=== PATIENT | female | born 1985 | race Hispanic/Latino ===

== ENCOUNTER 2018-11-20 19:10 | Emergency (ER) | payer SELFPAY ==
[2018-11-20 20:09] LABS: #Eosinphils 0.1 thou/uL (0.0-0.7); #Monocytes 0.5 thou/uL (0.11-0.59); #Neutrophils 4.6 thou/uL (1.40-6.50); %Basophils 0.3 % (0.0-1.0); %Eosinophils 1.4 % (0.0-10.0); %Lymphocytes 36.4 % (21.0-51.0); %Monocytes 6.4 % (0.0-10.0); %Neutrophils 55.5 % (42.0-75.0); Hemoglobin 11.7 g/dL (12.0-16.0); Mean Corpuscular HGB CONC 32.5 g/dL (32.0-36.0); Mean Corpuscular Hemoglobin 26.9 pg (27.0-31.0); Mean Corpuscular Volume 82.9 fL (78.0-98.0); Mean Platelet Volume 9.7 fL (7.4-10.4); Platelet Count 277 thou/uL (130-400); RBC Distribution Width 14.5 % (11.5-14.5); Red Blood Cell (RBC) Count 4.36 mill/uL (4.20-5.40); White Blood Cell (WBC) Count 8.2 thou/uL (4.8-10.8)
[2018-11-20] MEDS ORDERED: Ketorolac Tromethamine 30 MG/ML VIAL ONE (20:14)
[2018-11-20 20:34] LABS: ALT (SGPT) 16 U/L (8-55); AST (SGOT) 20 U/L (5-34); Albumin 4.3 g/dL (3.5-5.0); Alkaline Phosphatase 68 U/L (40-150); Anion Gap 13 mmol/L (10-20); BUN (Urea Nitrogen) 9 mg/dL (7.0-18.7); Bilirubin, Total 0.3 mg/dL (0.2-1.2); Calc. Creatinine Clearance 0 mL/min (70-130); Calcium 9.1 mg/dL (7.8-10.44); Carbon Dioxide 21 mmol/L (22-29); Chloride 105 mmol/L (98-107); Estimated GFR-MDRD Greater than 90; Globulin 3.5 g/dL (2.4-3.5); Glucose 75 mg/dL (70-105); Lipase 21 U/L (8-78); Potassium 3.8 mmol/L (3.5-5.1); Protein, Total 7.8 g/dL (6.0-8.3); Sodium 135 mmol/L (136-145)
--- NOTE | 2018-11-20 21:33 | ULT ---
EXAM: Pelvic ultrasound HISTORY: Bilateral pelvic pain for 2 days COMPARISON: None TECHNIQUE: Multiple grayscale and color Doppler images were obtained in a transabdominal and transvag inal pelvic ultrasound. Spectral analysis of the Doppler waveforms of the ovaries were performed. FINDINGS: CERVIX: No evidence of nabothian cysts. UTERUS: Normal in size without focal abnormality. Retroverted. ENDOMETRIAL STRIPE: 9 mm. A tiny amount of free fluid is seen in the pelvis. RIGHT OVARY: Normal flow without focal mass. LEFT OVARY: Normal flow without focal mass. IMPRESSION: No significant pelvic abnormality
[2018-11-20] MEDS ORDERED: traMADol HCl 50 MG TAB ONE (21:54)
== END 2018-11-20 22:20 | disposition home or self-care (01) ==
LOC: ERS 19:10
DX: N83.202 Unspecified ovarian cyst, left side (principal); I10 Essential (primary) hypertension
CPT/HCPCS: 76856; 80053; 83690; 85025; 96374; J1885

== ENCOUNTER 2019-04-24 17:14 | Emergency (ER) | payer SELFPAY ==
[2019-04-24 17:40] LABS: #Eosinphils 0.1 thou/uL (0.0-0.7); #Lymphocytes 2.4 thou/uL (1.20-3.40); #Monocytes 0.6 thou/uL (0.11-0.59); #Neutrophils 6.4 thou/uL (1.40-6.50); %Basophils 0.5 % (0.0-1.0); %Eosinophils 0.6 % (0.0-10.0); %Lymphocytes 24.7 % (21.0-51.0); %Monocytes 6.5 % (0.0-10.0); %Neutrophils 67.7 % (42.0-75.0); Hemoglobin 11.1 g/dL (12.0-16.0); Mean Corpuscular HGB CONC 32.7 g/dL (32.0-36.0); Mean Corpuscular Hemoglobin 25.5 pg (27.0-31.0); Mean Corpuscular Volume 78.2 fL (78.0-98.0); Mean Platelet Volume 9.5 fL (7.4-10.4); Platelet Count 328 thou/uL (130-400); RBC Distribution Width 15.1 % (11.5-14.5); Red Blood Cell (RBC) Count 4.35 mill/uL (4.20-5.40); White Blood Cell (WBC) Count 9.5 thou/uL (4.8-10.8)
--- NOTE | 2019-04-24 19:01 | ULT ---
Obstetric sonogram transabdominal and transvaginal imaging with duplex evaluation HISTORY: Pelvic pain and bleeding. Early . FINDINGS: Uterus has a homogeneous echotexture and is slightly retroverted. Gestational sac within th e endometrial cavity contains a pole and yolk sac. Heart motion at 171 bpm. Measurements correlate with 9 weeks 3 days gestational age giving an estimated date of delivery of 11/24/2019. No e vidence of subchorionic hemorrhage. No free fluid in the pelvis. Each ovary has a normal appearance with good color and spectral Doppler flow. IMPRESSION: Single intrauterine gestation. Estimated gestational age 9 weeks 3 days. No abnormalities are demonstrated.
== END 2019-04-24 20:57 | disposition home or self-care (01) ==
LOC: ERS 17:14
DX: O20.9 Hemorrhage in early pregnancy, unspecified (principal); O13.1 Gestational [pregnancy-induced] hypertension without significant proteinuria, first trimester; Z3A.09 9 weeks gestation of pregnancy
CPT/HCPCS: 36415; 76856; 84702; 85025; 86900; 86901

== ENCOUNTER 2019-05-27 19:35 | Emergency (ER) | payer OTHER, SELFPAY ==
[2019-05-27 20:14] LABS: #Basophils 0.1 thou/uL (0.0-0.2); #Eosinphils 0.1 thou/uL (0.0-0.7); #Lymphocytes 2.6 thou/uL (1.20-3.40); #Monocytes 0.8 thou/uL (0.11-0.59); #Neutrophils 5.3 thou/uL (1.40-6.50); %Eosinophils 1.4 % (0.0-10.0); %Lymphocytes 29.5 % (21.0-51.0); %Monocytes 8.8 % (0.0-10.0); %Neutrophils 59.4 % (42.0-75.0); Hemoglobin 11.2 g/dL (12.0-16.0); Mean Corpuscular HGB CONC 33.4 g/dL (32.0-36.0); Mean Corpuscular Volume 77.6 fL (78.0-98.0); Platelet Count 290 thou/uL (130-400); RBC Distribution Width 16.5 % (11.5-14.5); Red Blood Cell (RBC) Count 4.31 mill/uL (4.20-5.40); White Blood Cell (WBC) Count 8.9 thou/uL (4.8-10.8)
--- NOTE | 2019-05-27 20:24 | RAD ---
RADIOGRAPH CHEST 1 VIEW: DATE: 05/27/2019 TIME: 8:11 PM HISTORY: 33-year-old female with chest pain and dyspnea COMPARISON: none FINDINGS: Limited study because of hypoinflated lungs. No gross consolidation, pneumothorax, or effacement of l ateral costophrenic angles. IMPRESSION: No consolidation
[2019-05-27 20:34] LABS: ALT (SGPT) 11 U/L (8-55); AST (SGOT) 10 U/L (5-34); Alkaline Phosphatase 59 U/L (40-110); Anion Gap 12 mmol/L (10-20); BUN (Urea Nitrogen) 5 mg/dL (7.0-18.7); Bilirubin, Total 0.2 mg/dL (0.2-1.2); Calc. Creatinine Clearance 0 mL/min (70-130); Carbon Dioxide 22 mmol/L (22-29); Chloride 104 mmol/L (98-107); Estimated GFR-MDRD Greater than 90; Globulin 3.5 g/dL (2.4-3.5); Glucose 77 mg/dL (70-105); Lipase 29 U/L (8-78); Potassium 3.9 mmol/L (3.5-5.1); Protein, Total 7.5 g/dL (6.0-8.3); Sodium 134 mmol/L (136-145)
--- NOTE | 2019-05-28 14:52 | EKG ---
Test Reason : Blood Pressure : / mmHG Vent. Rate : 079 BPM Atrial Rate : 079 BPM P-R Int : 142 ms QRS Dur : 084 ms QT Int : 374 ms P-R-T Axes : 009 006 007 degrees QTc Int : 428 ms Normal sinus rhythm Normal ECG Confirmed by JONO SAMANIEGO MD ([id number]), editorial project manager TREVOR KLEIN ([id number]) on 05/28/2019 2:51:59 PM Referred By: Confirmed By:JONO SAMANIEGO MD
== END 2019-05-27 21:02 | disposition home or self-care (01) ==
LOC: ERS 19:35
DX: O99.89 Other specified diseases and conditions complicating pregnancy, childbirth and the puerperium (principal); R07.89 Other chest pain; O10.912 Unspecified pre-existing hypertension complicating pregnancy, second trimester; Z3A.14 14 weeks gestation of pregnancy; Z79.82 Long term (current) use of aspirin
CPT/HCPCS: 71045; 80053; 83690; 84484; 85025; 93005

== ENCOUNTER 2019-06-25 10:28 | Observation (INO) | payer MEDICAID, SELFPAY ==
[2019-06-25 11:19] LABS: #Basophils 0.1 thou/uL (0.0-0.2); #Eosinphils 0.1 thou/uL (0.0-0.7); #Lymphocytes 2.1 thou/uL (1.20-3.40); #Monocytes 0.5 thou/uL (0.11-0.59); #Neutrophils 5.3 thou/uL (1.40-6.50); %Basophils 1.2 % (0.0-1.0); %Eosinophils 1.4 % (0.0-10.0); %Lymphocytes 25.5 % (21.0-51.0); %Monocytes 5.6 % (0.0-10.0); %Neutrophils 66.4 % (42.0-75.0); Hemoglobin 10.9 g/dL (12.0-16.0); Mean Corpuscular Hemoglobin 26.1 pg (27.0-31.0); Mean Corpuscular Volume 79.1 fL (78.0-98.0); Mean Platelet Volume 10.2 fL (7.4-10.4); Platelet Count 272 thou/uL (130-400); RBC Distribution Width 16.6 % (11.5-14.5); Red Blood Cell (RBC) Count 4.17 mill/uL (4.20-5.40)
[2019-06-25 11:44] LABS: Anion Gap 15 mmol/L (10-20); BUN (Urea Nitrogen) 4 mg/dL (7.0-18.7); CK (CPK) 47 U/L (29-168); Calc. Creatinine Clearance 0 mL/min (70-130); Calcium 9.2 mg/dL (7.8-10.44); Carbon Dioxide 18 mmol/L (22-29); Chloride 106 mmol/L (98-107); Estimated GFR-MDRD Greater than 90; Glucose 85 mg/dL (70-105); Lipase 26 U/L (8-78); Potassium 3.8 mmol/L (3.5-5.1); Sodium 135 mmol/L (136-145)
--- NOTE | 2019-06-25 11:58 | RAD ---
Exam: Chest one view HISTORY:Chest pain Comparison: 05/27/2019 FINDINGS: Cardiac silhouette: Normal Aorta: Unremarkable Pulmonary vessels: Normal Costophrenic angles: Clear No masses or consolidation. LUNGS: Pneumothorax: None Osseous abnormalities: None IMPRESSION: No acute cardiopulmonary process.
--- NOTE | 2019-06-25 13:11 | PDOC.FPROB ---
FMR OB H&P: HPI - History of Present Illness Chief Complaint: chest pain Indentification: 33 yo at 18.5 wga by LMP c/w 9.3 wk sono History of Present Illness: Pt presents after experiencing chest pain yesterday and today. Describes the pain as a pressure which is under the left side of her ribs anteriorly and in the center of her chest. The pain did not radiate anywhere. The pain was better when she stood up. She also felt some SOB on exertion which has since resolved. Admits to nausea with her chest pain and headaches which tend to last all day. She has not tried anything for the headache. Also reports feeling restless at night. Denies burping, feelings of heartburn. She does have GERD at times w/ her and does not feel that this is the same. She says she has had this chest pain and SOB at other times since being . She also has been diagnosed w/ new heart murmur since being . PMHx includes severe pre-eclampsia which indicated early delivery of her two previous pregnancies. She was diagnosed w/ GDM during this . She measures her blood sugar 4 times daily. Her fasting levels are 80-90. Postprandial are usually 140s. Primary Care Physician: ROBERTO Benoit FMR OB H&P: Current - Care : 3 Para: 1102 Gestational age: 18.5 wga Due date: 11/11/2019 Dating Criteria: LMP c/w 9.3 wk sono Course/Complications: GDM AMA at time of delivery 2/6 systolic ejection murmur Obesity Hx of severe pre-eclampsia, taking ASA81 - OB Labs Blood type: unknown RH: unknown Antibody Screen: unknown HIV: unknown RPR: unknown HepBsAg: unknown Gonorrhea: unknown Chlamydia: unknown 3 hour GTT: failed A1c: 5.8 GBS: unknown FMR OB H&P: History - Past Medical History PMH: Heart Murmur GDM - OB History OB History: 2 SVDs. Hx of pre-eclampsia in both. Delivered at 36, 37 wga respectively. 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 - Surgical History Sx History: Denies. - Social History Social History: Denies smoking, drinking, drugs. - Family History Family History: Mother w/ HTN Maternal aunt w/ diabetes FMR OB H&P: Medications - Current Home Medications: Medication Instructions Recorded Confirmed Type Aspirin [Adult Low Dose Aspirin EC] 81 mg PO DAILY 06/25/19 06/25/19 History Vitamin 1 tab PO DAILY tab 06/26/19 Rx Allergies/Adverse Reactions: Allergies Allergy/AdvReac Type Severity Reaction Status Date / Time No Known Allergies Allergy Unverified 06/25/19 15:23 FMR OB H&P: ROS - Review of Systems General: denies: fever/chills, weight/appetite/sleep changes, fatigue Eyes: reports: vision changes (was "seeing spots" over one eye several days ago that took time to resolve) ENT: denies: nasal congestion, sore throat Cardiovascular: reports: chest pain. denies: palpitation, edema Respiratory: denies: cough, shortness of breath Gastrointestinal: reports: abdominal pain (some distension and bloating), bloating, nausea. denies: vomiting, diarrhea, constipation Genitourinary (Female): denies: dysuria, vaginal bleeding, contractions Neurologic: reports: headache (pt has daily headaches). denies: weakness Integumentary: denies: rash Hematologic/Lymphatic: denies: prolonged or excessive bleeding Psychological: denies: depression, anxiety FMR OB H&P: Vital Signs - Maternal Vital signs: BP: 128/75, MAP: 92, Pulse: 79, Resp: 20, Pain: 0, O2 sat: 99 on (Room Air), Time: 06/25/2019 12:31 FMR OB H&P: Physical Exam - Physical Exam General: NAD, awake, alert and oriented HEENT: normocephalic and atraumatic, grossly normal vision, grossly normal hearing Neck: supple, FROM, trachea midline, no LAD Deviation from normal: acanthosis nigricans Chest: non-tender to palpation, no lesions Heart: RRR, normal S1/S2 Deviation from normal: 2/6 systolic murmur heard best over USBs General: CTAB, no respiratory distress Abdomen: soft, non-tender, bowel sound present Musculoskeletal: pulses present Neurological: no focal deficit Skin: no rash Lymphatic: no unusual bruising or bleeding, no purpura, no petechia Psychiatric: intact recent and remote memory, normal mood and affect FMR OB H&P: Results - Labs Lab results: Laboratory Results - last 24 hr 06/25/19 06/25/19 06/25/19 11:04 11:04 11:04 WBC 8.0 RBC 4.17 L Hgb 10.9 L Hct 33.0 L MCV 79.1 MCH 26.1 L MCHC 33.0 RDW 16.6 H Plt Count 272 MPV 10.2 Neutrophils % 66.4 Lymphocytes % 25.5 Monocytes % 5.6 Eosinophils % 1.4 Basophils % 1.2 H Neutrophils # 5.3 Lymphocytes # 2.1 Monocytes # 0.5 Eosinophils # 0.1 Basophils # 0.1 D-Dimer Sodium 135 L Potassium 3.8 Chloride 106 Carbon Dioxide 18 L Anion Gap 15 BUN 4 L Creatinine 0.49 L Estimated GFR (MDRD) Greater than 90 Glucose 85 Calcium 9.2 Creatine Kinase 47 Troponin I Less than 0.010 Lipase 26 06/25/19 11:04 WBC RBC Hgb Hct MCV MCH MCHC RDW Plt Count MPV Neutrophils % Lymphocytes % Monocytes % Eosinophils % Basophils % Neutrophils # Lymphocytes # Monocytes # Eosinophils # Basophils # D-Dimer 0.88 H Sodium Potassium Chloride Carbon Dioxide Anion Gap BUN Creatinine Estimated GFR (MDRD) Glucose Calcium Creatine Kinase Troponin I Lipase FMR OB H&P: A/P - Problem List (1) Systolic murmur Status: Acute Code(s): R01.1 - CARDIAC MURMUR, UNSPECIFIED (2) Gestational diabetes Status: Acute Code(s): O24.419 - GESTATIONAL DIABETES MELLITUS IN , UNSP CONTROL (3) Status: Acute (4) History of pre-eclampsia in prior , currently Status: Acute Code(s): O09.299 - SUPRVSN OF PREG W POOR REPRODCTV OR OBSTET HISTORY, UNSP TRI Disposition: observe on telemetry. ELOS < 48H. Discussion: Date/Time: 06/25/19 1311 33 yo at 18.5 wga by 9.3 wk sono admitted for: Chest pain Dyspnea Systolic Murmur - symptoms are improved upon evaluation in ER - pt has risk being and having heart murmur. - Ordered ECHO Gestational DM, A1 (diet controlled) - failed 3hr GTT - diabetic diet Hx of severe pre-eclampsia in prior - continue ASA81 - baseline Urine Pr/Cr 111 Anemia of - continue PNV. Hgb at [facility] was 10.8 GERD - manage symptoms Obesity This H&P was discussed with Dr. Parry, and Dr. Correa who agree with the above documentation and plan. Signature: Gabe Joshi MD PGY1 I, Susu Correa MD, PGY-3, evaluated this patient and agree with internetworking technician note. 33 y/o @ 18.5 WGA presents to ED for evaluation due to chest pain and dyspnea. She reports her symptoms started yesterday and are worse with exertion , but improved with standing up. She denies any prior h/o chest pain or heart problems. She was recently noted to have a new heart murmur. Chest pain has now resolved, but dyspnea has continued. PE: Gen - alert, oriented, resting comfortably in NAD CV - RRR, 3/6 systolic murmur, no edema Resp - CTAB, no wheezes Abd - soft, gravid, NTTP Labs: Trop < 0.010 CXR - no acute process LE doppler US: no DVT A/P: 1. Dyspnea in setting of new murmur Unknown cause at this time, but pt with new murmur -Will obs on tele -Trend trops -Repeat EKG with next trop -Echo 2. -Daily dopplers 3. Prediabetes, failed 3hGTT Diet controlled -Continue consistent carb diet -accuchecks Dispo: Obs on tele LOS: < 48 hours Addendum - Attending - Attending Attestation Date/Time: 06/29/19 1800 I personally evaluated the patient and discussed the management with Dr. Joshi on 06/25/19. I agree with the History, Examination, Assessment and Plan documented above with any addition or exceptions noted below. 33 yo here with subacute onset of atypical CP with CHANEY and undiagnosed Heart Murmur. EKG with voltage criteria for LVH. Labs neg for cardiac injury. Will Obs to obtain Echo and monitor cardiac rhythm.
--- NOTE | 2019-06-25 13:33 | ULT ---
Venous duplex sonogram bilateral lower extremity HISTORY: Bilateral leg pain and edema. FINDINGS: Each common femoral vein and greater saphenous junction were evaluated along with each femo ral, deep femoral, popliteal, and posterior tibial vein. There is good color and spectral Doppler flow, compression, and augmentation. IMPRESSION : Normal exam.
[2019-06-25 14:59] LABS: Troponin I Less than 0.010 ng/mL (< 0.028)
[2019-06-25 17:21] VITALS: BMI 34.2
[2019-06-25 17:53] LABS: Troponin I Less than 0.010 ng/mL (< 0.028)
--- NOTE | 2019-06-26 07:35 | PDOC.FM ---
- Subjective Subjective: Patient feeling well this AM. No chest pain or SOB. No swelling in hands or feet. Recently returned from Echo. - Objective MAR Reviewed: Yes Vital Signs & Weight: Vital Signs (12 hours) Temp Pulse Resp BP Pulse Ox 06/26/19 04:53 98.6 F 83 18 105/61 99 06/26/19 01:11 99 06/25/19 23:46 98.3 F 86 18 114/62 99 Weight Weight 90.628 kg Result Diagrams: 06/25/19 11:04 06/25/19 11:04 Phys Exam - Physical Examination Constitutional: NAD Respiratory: no wheezing, clear to auscultation bilateral Cardiovascular: RRR (2/6 Systolic murmur best heard over USBs) Gastrointestinal: no distention Musculoskeletal: no edema Psychiatric: normal affect, A&O x 3 Dx/Plan (1) Systolic murmur Code(s): R01.1 - CARDIAC MURMUR, UNSPECIFIED Status: Acute (2) Gestational diabetes Code(s): O24.419 - GESTATIONAL DIABETES MELLITUS IN , UNSP CONTROL Status: Acute (3) Status: Acute (4) History of pre-eclampsia in prior , currently Code(s): O09.299 - SUPRVSN OF PREG W POOR REPRODCTV OR OBSTET HISTORY, UNSP TRI Status: Acute - Plan Plan: 33 yo at 18.5 wga by 9.3 wk sono admitted for: Chest pain Dyspnea Systolic Murmur - symptoms are improved upon evaluation in ER - pt has risk being and having heart murmur. - Echo taken, awaiting results. Gestational DM, A1 (diet controlled) - failed 3hr GTT, A1C 5.8 in prediabetic range - diabetic diet Hx of severe pre-eclampsia in prior - continue ASA81 - baseline Urine Pr/Cr 111 Anemia of - continue PNV. Hgb at [facility] was 10.8 GERD - manage symptoms Obesity Dispo: likely discharge today. Will call the patient with her Echo results. Addendum - Attending - Attending Attestation Date/Time: 06/29/19 2355 I personally evaluated the patient and discussed the management with Dr. Joshi on 06/26/19. I agree with the History, Examination, Assessment and Plan documented above with any addition or exceptions noted below. Echo normal. Symptoms improved. Likely related. Stable for d/c home.
[2019-06-26 07:54] VITALS: BP 117/80; TEMP 98.3
[2019-06-26] MEDS ORDERED: Aspirin 81 mg Enteric Coated Tablet PO SCH (09:00)
[2019-06-26] MEDS ORDERED: Prenatal Vitamin 1 TAB PO SCH (09:00)
--- NOTE | 2019-06-27 04:06 | DIS ---
DATE OF ADMISSION: 06/25/2019 DATE OF DISCHARGE: 06/26/2019 DISCHARGE ATTENDING: Jay Jay Parry MD. RESIDENT: Vashti Joshi MD. CONSULTS: None. PROCEDURES PERFORMED: 1. Echocardiogram. Ejection fraction 55% to 60%. Normal size of right and left ventricles and right and left atria. Normal aortic valve. Trace tricuspid regurgitation. Mild pulmonic regurgitation. 2. Chest x-ray. No acute intrathoracic abnormalities. 3. Bilateral lower extremity Doppler. Negative for DVT bilaterally. DISCHARGE MEDICATIONS: 1. Aspirin 81 mg daily. 2. vitamin daily. DISCONTINUED MEDICATIONS: None. HISTORY OF PRESENT ILLNESS AND HOSPITAL COURSE: Karime Jacobson is a 33-year- old, G3, P1-1-0-2, at 18.5 weeks gestation by a last menstrual period consistent with a 9.3 week ultrasound. She has been experiencing chest pain on and off through her , but this pain acutely worsened yesterday and today. She describes the pain as pressure in the center of her chest and under the left side of her ribs. She denied radiation of the pain. She also felt shortness of breath and dyspnea on exertion. Other symptoms included nausea and a headaches which had been persisting every day. The patient's past medical history includes severe preeclampsia with her 2 previous pregnancies which resulted in early delivery at 36 weeks and 37 weeks, respectively. She reports she was diagnosed with gestational diabetes during this current . She checks her blood sugars 4 times daily. Her fasting levels range between 80 and 90. Two-hour postprandial levels are usually in the 140s. Per review of records, the patient's A1c was 5.8 indicating she was prediabetic. However, she failed a 3-hour glucose tolerance test which was done early in her . Per review of her records, there was concern for the patient's symptoms and the development of a new 2/6 systolic murmur. The primary care provider was hoping to have an echocardiogram done at some point. The patient's vital signs were normal upon admission and her chest pain and dyspnea were improving;l however, due to the risk these symptoms along with heart murmur posed to her , a bilateral Doppler ultrasound was obtained, which was normal, along with a chest x-ray which was also normal. She was admitted in order to obtain an echocardiogram and for complete resolution of symptoms. We trended her troponins which were negative x3. The patient had normal blood pressures while she was admitted. Her headache did eventually improve overnight with rest. The patient's echocardiogram resulted and was normal. She was then discharged to home to follow up with her primary care physician as scheduled. DISPOSITION: Stable. DISCHARGE INSTRUCTIONS: 1. Location: Home. 2. Activity: Recommend the patient limit herself due to symptoms. 3. Diet: Carbohydrate consistent. 4. Follow up with primary care provider and care as scheduled. Job ID: [id number] MTDD
--- NOTE | 2019-06-27 09:47 | EKG ---
Test Reason : Blood Pressure : / mmHG Vent. Rate : 078 BPM Atrial Rate : 078 BPM P-R Int : 144 ms QRS Dur : 084 ms QT Int : 386 ms P-R-T Axes : 006 -01 -02 degrees QTc Int : 440 ms Normal sinus rhythm Minimal voltage criteria for LVH, may be normal variant Borderline ECG When compared with ECG of 27-MAY-2019 19:52, No significant change was found Confirmed by DR. Nate SEYMOUR ([id number]) on 06/27/2019 9:46:46 AM Referred By: MARIE william Confirmed By:DR. Nate SEYMOUR
== END 2019-06-26 11:29 | disposition home or self-care (01) ==
LOC: ERS 10:28 → 2SE 13:11
PROVIDERS: ADMIT Family Medicine; ATTEND Family Medicine
DX: O99.89 Other specified diseases and conditions complicating pregnancy, childbirth and the puerperium (principal); R07.89 Other chest pain; R06.00 Dyspnea, unspecified; R01.1 Cardiac murmur, unspecified; O24.410 Gestational diabetes mellitus in pregnancy, diet controlled; O09.292 Supervision of pregnancy with other poor reproductive or obstetric history, second trimester; O99.012 Anemia complicating pregnancy, second trimester; D64.9 Anemia, unspecified; O99.612 Diseases of the digestive system complicating pregnancy, second trimester; K21.9 Gastro-esophageal reflux disease without esophagitis; O99.212 Obesity complicating pregnancy, second trimester; E66.9 Obesity, unspecified; O09.522 Supervision of elderly multigravida, second trimester; Z3A.18 18 weeks gestation of pregnancy; Z79.82 Long term (current) use of aspirin
CPT/HCPCS: 36415; 36416; 71045; 80048; 82550; 83690; 84484; 85025; 85379; 93005; 93010; 93306; 93970; 94760; G0378

== ENCOUNTER 2019-08-19 21:29 | Day surgery (SDC) | payer OTHER ==
[2019-08-19 22:06] VITALS: BP 147/78; TEMP 98.5; BMI 39.2
[2019-08-19 22:17] LABS: Amnisure Test No Membranes Rupture (No Rupture)
[2019-08-19 22:18] LABS: Amnisure Internal Control QC ACCEPTABLE (ACCEPTABLE)
[2019-08-19 22:33] LABS: Bacteria/HPF None Seen HPF (None Seen); Bilirubin Negative (Negative); Blood, Urine 2+ (Negative); Clarity Clear (Clear); Glucose, Urine (Dipstick) Normal (Negative); Leukocyte Negative Leu/uL (Negative); Nitrite Negative (Negative); Protein, Urine (Dipstick) Negative (Neg-Trace); Squamous Epithelial 0-3 HPF (0-3); Urobilinogen Normal mg/dL (Less than 2); WBC/HPF 0-3 HPF (0-3)
--- NOTE | 2019-08-19 22:53 | PDOC.FPROB ---
FMR OB H&P: HPI - History of Present Illness Chief Complaint: Leakage of Fluid Indentification: History of Present Illness: Pt is a 33 yo at 26.4 wks, PEDRO 26.4, who presents for leakage of fluid. Fluid initially present at 0400 soaking her underwear. Since she has experienced some leakage of fluid but also has urinary hesitancy and frequency. She feels occasional contractions but not frequent. She has hx of Pre-E in prior 2 pregnancies and delivered at 35 wks, 36 wks via . She takes her BP' s daily and usually run 130's-140's/70's. She denies pre-e symptoms. She sees MFM each month due to her PIH diagnosis. 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 - Surgical History Sx History: Denies - Social History Social History: Denies tobacco, alcohol, drugs - Family History Family History: non-contributory FMR OB H&P: Medications - Current Home Medications: Medication Instructions Recorded Confirmed Type Aspirin [Adult Low Dose Aspirin EC] 81 mg PO DAILY 06/25/19 08/19/19 History Vitamin 1 tab PO DAILY tab 06/26/19 08/19/19 Rx Allergies/Adverse Reactions: Allergies Allergy/AdvReac Type Severity Reaction Status Date / Time No Known Allergies Allergy Verified 08/19/19 22:38 FMR OB H&P: ROS - Review of Systems General: denies: fever/chills, weight/appetite/sleep changes Eyes: denies: eye pain, vision changes ENT: denies: nasal congestion, rhinorrhea Cardiovascular: denies: chest pain, palpitation, edema Respiratory: denies: cough, shortness of breath Gastrointestinal: denies: abdominal pain, nausea, vomiting Genitourinary (Female): reports: polyuria, hesitancy, contractions. denies: hematuria, vaginal discharge, vaginal pain, vaginal bleeding Musculoskeletal: denies: pain, stiffness Neurologic: denies: numbness, seizures Integumentary: denies: itching, rash Psychological: denies: depression, anxiety FMR OB H&P: Vital Signs - Maternal Vital signs: Vital Signs - First Documented Temp Pulse Resp BP 98.5 F 86 20 147/78 H 08/19/19 21:33 08/19/19 21:33 08/19/19 21:33 08/19/19 21:33 - Heart Tones Baseline: 150 FMR OB H&P: Physical Exam - Physical Exam General: NAD, awake, alert and oriented HEENT: PERRLA, EOMI Neck: FROM, no JVD Heart: RRR, normal S1/S2 General: CTAB, no respiratory distress Abdomen: soft, gravid Deviation from normal: suprapubic tenderness Musculoskeletal: pulses present, FROM in all four extremities Neurological: cranial nerves II through XII intact, sensation to pain,touch and proprioception grossly normal Skin: good tugor, capillary refill <2 seconds Lymphatic: no purpura, no petechia Psychiatric: intact recent and remote memory, good judgement and insight - Pelvic Exam Vulva: normal hair distribution, no lesions Cervix: no lesions FMR OB H&P: Results - Labs Lab results: Laboratory Results - last 24 hr 08/19/19 08/19/19 21:55 22:09 Urine Color Colorless Urine Clarity Clear Urine pH 7.0 Ur Specific [place] 1.003 Urine Protein Negative Urine Glucose (UA) Normal Urine Ketones Negative Urine Blood 2+ A Urine Nitrite Negative Urine Bilirubin Negative Urine Urobilinogen Normal Ur Leukocyte Esterase Negative Urine RBC 4-6 A Urine WBC 0-3 Ur Squamous Epith Cells 0-3 Urine Bacteria None Seen Hyaline Casts 0-3 Amnio Swab Test No Membranes Rupture FMR OB H&P: A/P - Problem List (1) Gestational diabetes Current Visit: No Status: Acute Code(s): O24.419 - GESTATIONAL DIABETES MELLITUS IN , UNSP CONTROL (2) History of pre-eclampsia in prior , currently Current Visit: No Status: Acute Code(s): O09.299 - SUPRVSN OF PREG W POOR REPRODCTV OR OBSTET HISTORY, UNSP TRI (3) Current Visit: No Status: Acute Disposition: Pt is a 33 yo at 26.4 wks who presents for leakage of fluids: # Intrauterine # Fluid Leakage # Urinary hesitancy, frequency - amnisure negative - sterile spec exam revealed no pooling of fluid with cough, valsalva - no ROM - pt likely has urinary tract infection - pending UA. If positive will send for culture and treat empirically # PIH in setting of Pre-E in previous pregnancies - monitor pressures - no severe range pressures - follow up with PNC and MFM # A1GDM Dispo: discharge likely with abx Discussion: Date/Time: 08/19/19 7924 This H&P was discussed with Dr. Brewer agrees with the above documentation and plan.
--- NOTE | 2019-08-19 23:00 | PDOC.BPN ---
- Brief Progress Note OBGYN [employer] Faculty note I have seen the patient at bedside and agree with POC per Dr Huynh. 33 yo who is followed by MFM for PreE, now at 26 weeks 4 days with possible UTI sxs, unsure if LOF. I participated with SSE and confirmed with Dr Huynh no LOF noted and valsalva was negative. was negative. SXS most C/W UTI but are checking UA with reflex. FHTs strip OK for EGA. No CTX. CX appears visually closed. Poss UTI at 26 weeks. Check UA. No evidence PTL. Please see full H&P
--- NOTE | 2019-08-19 23:08 | PDOC.BPN ---
- Brief Progress Note UA without bacteria. UA Blood may be from cath trauma as I saw the blood in the collection cup and it was not grossly bloddy. OK for outpatient care.
== END 2019-08-19 23:40 | disposition home or self-care (01) ==
LOC: L&D/OP 21:29
PROVIDERS: ATTEND Obstetrics & Gynecology
DX: O99.89 Other specified diseases and conditions complicating pregnancy, childbirth and the puerperium (principal); N89.8 Other specified noninflammatory disorders of vagina; R39.11 Hesitancy of micturition; R35.0 Frequency of micturition; O13.3 Gestational [pregnancy-induced] hypertension without significant proteinuria, third trimester; O24.410 Gestational diabetes mellitus in pregnancy, diet controlled; Z3A.26 26 weeks gestation of pregnancy; Z79.82 Long term (current) use of aspirin
CPT/HCPCS: 51701; 81001; 84112; 99284

== ENCOUNTER → 2019-09-02 | Day surgery (SDC) | payer OTHER ==
[~2019-09-02] MED LIST: Acetaminophen 500 MG TAB PO SCH; hydrALAZINE 20 MG/ML VIAL SLOW IVP PRN
--- NOTE | 2019-09-02 14:10 | PDOC.FPROB ---
FMR OB H&P: HPI - History of Present Illness Chief Complaint: high BPs, headache Indentification: at 28.4 wks by LMP History of Present Illness: at 28.4 wks by LMP with cHTN preGDM vs. GDM sent over from [facility] for preE workup. Patient had called into [facility] complaining of DOLL, vision changes, RUQ pain. Has not taken any meds. Her SBP this morning was 150s/70s. Reports her home BPs range from 130s/80s with a recent high of SBP 147 the other day. Patient reports she had a few emesis episodes with no blood. Denies diarrhea, fever, chills, or COVID19 exposure. She still has her GB but denies postprandial RUQ pain. She states she still has it currently and has been bothering her for the past 1-2 hours. Also reports suprapubic pain. Denies VB/VD /LOF/CTX. Endorses FM. 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 cHTN. - OB History OB History: 1. 2014: at 36 wks (PTB), F, 4lb 2. 2008: at 37 weeks, M, 10lb - CHESTNUT TANNER History CHESTNUT TANNER History: Pap NILM/ HPV Negative, none otherwise - Surgical History Sx History: None - Social History Social History: Denies TAD - Family History Family History: HTN FMR OB H&P: Medications - Current Home Medications: Medication Instructions Recorded Confirmed Type Aspirin [Adult Low Dose Aspirin EC] 81 mg PO DAILY 06/25/19 08/19/19 History Vitamin 1 tab PO DAILY tab 06/26/19 08/19/19 Rx Allergies/Adverse Reactions: Allergies Allergy/AdvReac Type Severity Reaction Status Date / Time No Known Allergies Allergy Verified 09/02/19 15:32 FMR OB H&P: ROS - Review of Systems General: denies: fever/chills, weight/appetite/sleep changes ENT: denies: nasal congestion, sore throat Cardiovascular: denies: chest pain, edema Respiratory: denies: cough, congestion, shortness of breath Gastrointestinal: reports: abdominal pain, nausea, vomiting. denies: diarrhea Genitourinary (Female): denies: vaginal discharge, vaginal pain, vaginal bleeding, contractions, vaginal pressure Musculoskeletal: denies: stiffness Neurologic: reports: headache. denies: seizures, weakness Endocrine: denies: cold intolerance, heat intolerance, polydipsia, polyuria FMR OB H&P: Physical Exam - Physical Exam General: NAD, awake, alert and oriented HEENT: normocephalic and atraumatic, EOMI, MMM, conjunctiva clear Neck: supple, FROM, trachea midline Heart: RRR, normal S1/S2, pulses present General: CTAB, no respiratory distress, good air movement Abdomen: soft, gravid, non-tender Deviation from normal: pain on deep palpation in RUQ, suprpubic tenderness to palpation Musculoskeletal: pulses present, FROM in all four extremities Skin: no rash, good tugor, capillary refill <2 seconds Lymphatic: no unusual bruising or bleeding, no purpura Psychiatric: intact recent and remote memory, good judgement and insight FMR OB H&P: A/P - Problem List (1) with 28 completed weeks gestation Current Visit: Yes Status: Acute Code(s): Z3A.28 - 28 WEEKS GESTATION OF (2) Gestational diabetes Current Visit: No Status: Acute Code(s): O24.419 - GESTATIONAL DIABETES MELLITUS IN , UNSP CONTROL (3) History of pre-eclampsia in prior , currently Current Visit: No Status: Acute Code(s): O09.299 - SUPRVSN OF PREG W POOR REPRODCTV OR OBSTET HISTORY, UNSP TRI (4) History of delivery Current Visit: Yes Status: Acute Code(s): Z87.51 - PERSONAL HISTORY OF PRE- TERM LABOR Discussion: Date/Time: 09/02/19 1408 33 yo at 28.4 by LMP here for elevated BPs, preE workup 1. sIUP at 28.4 weeks -FHT: poor tracing, will repeat -No signs of active labor at this time 2. Elevated BPs in cHTN, preE workup -Has had two recorded BPs in clinic SBP equal to or > 140 but never officially diagnosed. -PreE workup in May negative; urine pr/cr = 0.11. Will get baseline labs with history -BP monitoring here all WNL -Tylenol for DOLL 3. Abdominal pain -Negative Jackson's however pain with deep palpation, still present so will obtain RUQ U/S -UA clean catch 4. Pregestational DM vs. A1GDM -Reports controlled glucoses at home PCP: Kaycee at [facility] This H&P was discussed with Dr. Cueva who agrees with the above documentation and plan. Addendum - Attending - Attending Attestation Date/Time: 09/03/19 1322 I personally evaluated the patient and discussed the management with the team. I agree with the History, Examination, Assessment and Plan documented above with any addition or exceptions noted below. Headache improved with APAP, as well as RUQ pain. No sig TTP of RUQ. Only sludge in GB, no evidence of cholecystitis. Fetus cat 1 for age, no ctx. No evidence of hypertensive disorder. Follow up in clinic for possible GS referral.
[2019-09-02 14:30] VITALS: BMI 38.0
[2019-09-02 15:34] VITALS: BP 135/83; TEMP 98.1
[2019-09-02 16:06] LABS: #Basophils 0.1 thou/uL (0.0-0.2); #Eosinphils 0.1 thou/uL (0.0-0.7); #Lymphocytes 1.7 thou/uL (1.20-3.40); #Monocytes 0.5 thou/uL (0.11-0.59); #Neutrophils 5.8 thou/uL (1.40-6.50); %Lymphocytes 20.9 % (21.0-51.0); %Monocytes 6.2 % (0.0-10.0); %Neutrophils 70.9 % (42.0-75.0); Hemoglobin 9.2 g/dL (12.0-16.0); Mean Corpuscular HGB CONC 32.4 g/dL (32.0-36.0); Mean Platelet Volume 9.5 fL (7.4-10.4); Platelet Count 270 thou/uL (130-400); RBC Distribution Width 17.1 % (11.5-14.5); Red Blood Cell (RBC) Count 3.67 mill/uL (4.20-5.40); White Blood Cell (WBC) Count 8.2 thou/uL (4.8-10.8)
[2019-09-02 16:25] LABS: Bilirubin Negative (Negative); Blood, Urine Negative (Negative); Glucose, Urine (Dipstick) Negative (Negative); Leukocyte Negative (Negative); Nitrite Negative (Negative); Protein, Urine (Dipstick) Negative (Neg-Trace); Urobilinogen 0.2 mg/dL (Less than 2)
[2019-09-02 16:26] LABS: Clarity Clear (Clear)
--- NOTE | 2019-09-02 16:29 | ULT ---
EXAM: US Gallbladder RUQ CLINICAL HISTORY: patient. Right upper quadrant pain.. COMPARISON: None. FINDINGS: Pancreas: Obscured by bowel gas Liver:Heterogeneous hepatic parenchymal echotexture may be due to hepatic steatosis or hepatocellular disease. Subsequent limited evaluation for hepatic masses and intrahepatic biliary dilatation. Right hepatic lobe: 17.4 cm Gallbladder: No sonographic evidence of cholelithiasis. Small amount of sludge is noted within the marco a men of the gallbladder. Gallbladder wall is not thickened. Jackson's sign:Negative Portal Vein: Patent. Appropriate directional flow Bile ducts: 0.5 cm common bile duct diameter Right kidney: No hydronephrosis. Right kidney measures 5.3 x 5.0 x 12.3 cm in length. IMPRESSION: 1. Small amount of sludge within the lumen of the gallbladder. No sonographic evidence of cholecystit is 2. Heterogeneous hepatic parenchymal echotexture which may be due to hepatic steatosis or hepatocellu lar disease. Mild hepatomegaly.
[2019-09-02 16:33] LABS: ALT (SGPT) 10 U/L (8-55); AST (SGOT) 12 U/L (5-34); Albumin 3.6 g/dL (3.5-5.0); Alkaline Phosphatase 75 U/L (40-110); Anion Gap 13 mmol/L (10-20); BUN (Urea Nitrogen) Less than 4 mg/dL (7.0-18.7); Bilirubin, Total 0.2 mg/dL (0.2-1.2); Calc. Creatinine Clearance 228 mL/min (70-130); Calcium 8.7 mg/dL (7.8-10.44); Carbon Dioxide 20 mmol/L (22-29); Chloride 107 mmol/L (98-107); Estimated GFR-MDRD Greater than 90; Globulin 3.3 g/dL (2.4-3.5); Glucose 74 mg/dL (70-105); Potassium 3.6 mmol/L (3.5-5.1); Protein, Total 6.9 g/dL (6.0-8.3); Sodium 136 mmol/L (136-145)
[2019-09-02 16:38] LABS: Bacteria/HPF None Seen HPF (None Seen); RBC/HPF None Seen HPF (0-3); Squamous Epithelial 0-3 HPF (0-3); WBC/HPF None Seen HPF (0-3)
[2019-09-02 16:39] LABS: Urine Culture Reflex No No
[2019-09-02 16:45] LABS: Creatinine, Urine 63.16 mg/dL (47-110)
--- NOTE | 2019-09-02 17:26 | PDOC.BPN ---
- Brief Progress Note Baseline labs: -BPs all WNL <140/<90, negative preE labs -Urine pr/cr 0.19 -FHT: Difficult to trace due to body habitus but after 40 min monitoring 30min of that strip is reactive/Cat 1 -Abd US: Hepatic steatosis, GB with sludge but no cholecystitis. No other remarkable findings explaning RUQ pain -After 1g tylenol patient headache resolved, RUQ pain improved -Since improved, discussed discharge home, has f/u at [facility] tomorrow AM. They can further discuss surgery referral if significantly impairing. -Discussed ER precautions, patient agreeable to plan -Continue BP monitoring and glucose monitoring
== END | disposition home or self-care (01) ==
LOC: L&D/OP 13:11
PROVIDERS: ATTEND Orthopaedic Surgery
DX: O10.913 Unspecified pre-existing hypertension complicating pregnancy, third trimester (principal); O99.89 Other specified diseases and conditions complicating pregnancy, childbirth and the puerperium; R51 Headache; O99.613 Diseases of the digestive system complicating pregnancy, third trimester; K82.8 Other specified diseases of gallbladder; O99.213 Obesity complicating pregnancy, third trimester; E66.9 Obesity, unspecified; O09.213 Supervision of pregnancy with history of pre-term labor, third trimester; Z3A.28 28 weeks gestation of pregnancy; Z79.82 Long term (current) use of aspirin
CPT/HCPCS: 36415; 76705; 80053; 81001; 82570; 83690; 84156; 85025

== ENCOUNTER 2019-09-08 19:36 | Day surgery (SDC) | payer OTHER ==
--- NOTE | 2019-09-08 20:56 | PDOC.FPROB ---
FMR OB H&P: HPI - History of Present Illness Chief Complaint: Contractions History of Present Illness: 33 yo with a history of GDM complaining of contractions since yesterday. Patient explains she began feeling contractions at 2pm yesterday, 1- 2 occurring every hour. Since this morning she has been experiencing 2-3 contractions every hour. Patient also describes round ligament pain on her left side that is reproducible with elevation of her abdomen. She loss what she believes to be her mucous plug yesterday as well. She denies any bleeding or vaginal discharge. She explains she has had wet underwear this entire , was told it was normal and has not had any increase in leakage of fluid. She is feeling baby move. Patient had a headache yesterday but denies one today. She denies any vision changes, chest pain, shortness of breath, nausea, vomiting or diarrhea. Patient endorses swelling in her feet which has been present and unchanged the last few weeks. Patient's GDM is diet controlled, her AM glucose was 90 and her lunch reading was 153. FMR OB H&P: Current - Care : 3 Para: 1102 Gestational age: 29.3 Due date: 11/21/19 Dating Criteria: LMP c/w 9.3 wk sono Course/Complications: History of pre-eclampsia with 2 previous pregnancies. Diagnosis of Gestational Diabetes with this . Advanced maternal age. - OB Labs Blood type: O RH: positive Antibody Screen: negative HIV: negative RPR: negative HepBsAg: negative Rubella: immune Gonorrhea: negative Chlamydia: negative Pap Smear: negative, HPV negative 3 hour GTT: 90, 213, 216 A1c: 5.9 FMR OB H&P: History - Past Medical History PMH: pre-eclampsia with first 2 pregnancies GDM this , failed 3hr GTT - OB History OB History: 2008 @ 37 wks - preeclampsia 2014 @ 36 wks - preeclampsia - Social History Social History: Denies tobacco, alcohol, drug use - Family History Family History: mother - HTN FMR OB H&P: Medications - Current Home Medications: Medication Instructions Recorded Confirmed Type Aspirin [Adult Low Dose Aspirin EC] 81 mg PO DAILY 06/25/19 09/08/19 History Vitamin 1 tab PO DAILY tab 06/26/19 09/08/19 Rx Cephalexin [Keflex] 500 mg PO Q12H #14 cap 09/08/19 Rx Cephalexin [Keflex] 500 mg PO Q12H #14 cap 09/09/19 Rx Cephalexin [Keflex] 500 mg PO Q12H #14 cap 09/09/19 Rx Allergies/Adverse Reactions: Allergies Allergy/AdvReac Type Severity Reaction Status Date / Time No Known Allergies Allergy Verified 09/02/19 15:32 FMR OB H&P: ROS - Review of Systems Eyes: denies: vision changes, double vision Cardiovascular: reports: edema. denies: chest pain Respiratory: denies: shortness of breath Gastrointestinal: reports: abdominal pain. denies: nausea, vomiting, diarrhea Genitourinary (Female): reports: contractions. denies: dysuria, hematuria, polyuria, vaginal discharge, vaginal bleeding Musculoskeletal: reports: tenderness Neurologic: denies: headache Endocrine: denies: polyuria FMR OB H&P: Vital Signs - Maternal Vital signs: P-88 BP-116/64, 120/71 T-98.5 - Heart Tones Baseline: 140 Variability: moderate Acceleration: present Deceleration: absent Category: category 1 [place] contractions every: none FMR OB H&P: Physical Exam - Physical Exam General: NAD HEENT: normocephalic and atraumatic, EOMI, grossly normal hearing Heart: RRR, no murmurs/rubs/gallops General: CTAB Abdomen: gravid Deviation from normal: reproducible pain on left side with elevation of gravid abdomen Musculoskeletal: FROM in all four extremities Neurological: sensation to pain,touch and proprioception grossly normal Psychiatric: normal mood and affect - Pelvic Exam Vulva: normal hair distribution Deviation from normal: thick white and mucoid discharge, cervix was pink SVE: closed/thick/-1 FMR OB H&P: Results - Labs Lab results: Laboratory Tests 09/08/19 09/08/19 22:11 22:25 Urine Blood Trace A Amorphous Crystals 1+ A Urine Bacteria 1+ A Urine Culture Reflexed Yes A Fibronectin Negative VP3 - negative FMR OB H&P: A/P Discussion: Date/Time: 09/08/192054 33 yo at 29.3 wks by LMP c/w 9.3 wk sono with a history of GDM complaining of 2-3 contractions every hour of 2 day duration. Abdominal pain - rule out labor - no contractions on monitor - reactive NST - UA: trace blood, 1+ bacteria - FFN negative - VP3 negative - closed/thick/-1 on cervical exam Discharge home with Keflex 500mg BID x7days. Gave pain and labor precautions. This H&P was discussed with Dr. Ortiz and Dr. Pepper who agree with the above documentation and plan. Addendum - Attending - Attending Attestation Date/Time: 09/09/19 4916 I personally evaluated the patient and discussed the management with Dr. Singh I agree with the History, Examination, Assessment and Plan documented above with any addition or exceptions noted below.
[2019-09-08] MEDS ORDERED: hydrALAZINE 20 MG/ML VIAL SLOW IVP PRN (21:32)
[2019-09-08 22:48] LABS: Bilirubin Negative (Negative); Clarity Clear (Clear); Glucose, Urine (Dipstick) Normal (Negative); Ketone, Urine Negative (Negative); Leukocyte Negative Leu/uL (Negative); Nitrite Negative (Negative); Protein, Urine (Dipstick) Negative (Neg-Trace); Specific Gravity, Urine 1.014 (1.002-1.036); Squamous Epithelial 0-3 HPF (0-3); WBC/HPF 0-3 HPF (0-3)
[2019-09-08 22:50] LABS: Blood, Urine Trace (Negative)
[2019-09-08 22:51] LABS: Bacteria/HPF 1+ HPF (None Seen)
[2019-09-08 22:52] LABS: Urine Culture Reflex Yes Yes
[2019-09-08 22:56] LABS: FFN Internal QC Analyzer PASS (PASS); FFN Internal QC Cassette PASS (PASS); Fetal Fibronectin Negative (Negative)
== END 2019-09-09 00:10 | disposition home or self-care (01) ==
LOC: L&D/OP 19:36
PROVIDERS: ATTEND Obstetrics & Gynecology
DX: O47.03 False labor before 37 completed weeks of gestation, third trimester (principal); O24.419 Gestational diabetes mellitus in pregnancy, unspecified control; Z3A.29 29 weeks gestation of pregnancy
CPT/HCPCS: 81001; 82731; 87086; 87480; 87510; 87660; 99285

== ENCOUNTER 2019-09-24 10:39 | Observation (INO) | payer OTHER, SELFPAY ==
[2019-09-24 11:05] VITALS: BMI 38.3
[2019-09-24] MEDS ORDERED: hydrALAZINE 20 MG/ML VIAL SLOW IVP PRN ×2 (11:49→12:35)
[2019-09-24] MEDS ORDERED: Betamet Acet/Betamet Na Ph 30 MG/5 ML VIAL ONE (12:23)
[2019-09-24] MEDS ORDERED: Promethazine HCl 25 MG/ML VIAL IM PRN (12:35)
[2019-09-24] MEDS ORDERED: Ondansetron PF 4 MG/2 ML Vial IVP PRN (12:35)
[2019-09-24] MEDS ORDERED: Dextrose 50% Abboject 50 ML SYRINGE SLOW IVP PRN (12:41)
[2019-09-24] MEDS ORDERED: Dextrose 5% in Water 1,000 ML IV PRN (12:41)
[2019-09-24] MEDS ORDERED: HumaLOG 300 UNITS/3 ML VIAL SC PRN (12:41)
--- NOTE | 2019-09-24 12:52 | PDOC.FPROB ---
FMR OB H&P: HPI - History of Present Illness Chief Complaint: elevated BPs, headaches, epigastric pain, spots in eyes History of Present Illness: 33 yo with a history of pre-eclampsia and A2GDM at 31.5 wks complaining of elevated BPs, headache, epigastric pain, and scatomas. Patient reports intermittent, non-severe headaches and scatomas in her L eye for the past week. This morning she felt lightheaded and nauseous and had 3 episodes of non-bilious , non-bloody vomit. At this time she began experiencing intermittent stabbing epigastric pain that is still present and changes in intensity from 4/10 to 8/ 10. She has not taken anything for the pain. She also reports dizziness and headache this morning and says her BP was 158/111. Patient believes her headaches and lightheadedness are worse when her blood pressure is elevated. Patient was seen in [facility] this morning and had a Prot/Cr ratio of 0.324, elevated from 0.1 at her previous visit. Patient also reports contractions that occur every 3-4 days for the past 2 weeks, typically 2 contractions/hour, and more frequent in the afternoons. Patient was diagnosed with gestational DM during this , failing her 3hr gtt. She takes metformin and reports her morning fasting glucose was 80. FMR OB H&P: Current - Care : 3 Para: 1102 Gestational age: 31.5 Due date: 11/21/19 Dating Criteria: LMP c/w 9.3 wk sono Course/Complications: History of pre-eclampsia with 2 previous pregnancies. Diagnosis of Gestational Diabetes with this , medication controlled. - OB Labs Blood type: O RH: positive Antibody Screen: negative HIV: negative RPR: negative HepBsAg: negative Rubella: immune Gonorrhea: negative Chlamydia: negative Pap Smear: negative, HPV negative 3 hour GTT: 90, 213, 216 A1c: 5.9 FMR OB H&P: History - Past Medical History PMH: pre-eclampsia with first 2 pregnancies GDM this , failed 3hr GTT - OB History OB History: 2008 @ 37 wks - preeclampsia 2014 @ 36 wks - preeclampsia - Social History Social History: Denies tobacco, alcohol, drug use - Family History Family History: mother: HTN, father: [place] FMR OB H&P: Medications - Current Home Medications: Medication Instructions Recorded Confirmed Type Aspirin [Adult Low Dose Aspirin EC] 81 mg PO DAILY 06/25/19 09/24/19 History Vitamin 1 tab PO DAILY tab 06/26/19 09/24/19 Rx metFORMIN [Glucophage] 500 mg PO QAM-WM 09/24/19 09/24/19 History Allergies/Adverse Reactions: Allergies Allergy/AdvReac Type Severity Reaction Status Date / Time No Known Allergies Allergy Verified 09/02/19 15:32 FMR OB H&P: ROS - Review of Systems General: denies: fever/chills Eyes: reports: vision changes, scotomas ENT: denies: nasal congestion, rhinorrhea, sore throat Cardiovascular: denies: chest pain, palpitation, edema Respiratory: reports: shortness of breath. denies: cough, congestion Gastrointestinal: reports: abdominal pain, cramping, nausea, vomiting. denies: diarrhea, constipation, bright red blood Genitourinary (Female): reports: contractions. denies: incontinence, dysuria, vaginal discharge, vaginal bleeding Musculoskeletal: denies: decrease range of motion Integumentary: denies: rash FMR OB H&P: Vital Signs - Maternal Vital signs: Vital Signs - First Documented Pulse Resp BP 88 20 125/66 09/24/19 10:47 09/24/19 10:47 09/24/19 10:47 Additional BPs: 125/65, 123/66 - Heart Tones Baseline: 130 Variability: moderate Acceleration: present Deceleration: absent [place] contractions every: none FMR OB H&P: Physical Exam - Physical Exam General: NAD, awake, alert and oriented HEENT: normocephalic and atraumatic, PERRLA, EOMI, grossly normal hearing Neck: FROM Heart: RRR, normal S1/S2, no murmurs/rubs/gallops, pulses present, no edema General: CTAB, no respiratory distress, good air movement, no wheezing, no retractions Abdomen: gravid, non-tender Musculoskeletal: FROM in all four extremities Neurological: sensation to pain,touch and proprioception grossly normal, no focal deficit Psychiatric: intact recent and remote memory, good judgement and insight, normal mood and affect FMR OB H&P: A/P Discussion: Date/Time: 09/24/19 1250 33 yo with a history of pre-eclampsia and A2GDM at 31.5 wks complaining of elevated BPs, headache, epigastric pain, and scatomas. Possible pre-eclampsia w/o severe features Patient's BPs in hospital have been 120s/60s. Describes some symptoms of severe eclampsia. - corticosteroids - 2 doses - 24hr urine collection - CBC - CMP A2GDM Failed 3hr gtt. Will monitor blood glucose closely due to steroid administration. - Continue metformin - SSI prn Hx of pre-eclampsia Two pregnancies required induction. Will admit due to strong history and presenting symptoms. Diet: CC 1999 PCP: Lino RAHMAN Dispo: Will workup for pre-eclampsia, including 24hr urine This H&P was discussed with Dr. Walton who agrees with the above documentation and plan. Addendum - Attending - Attending Attestation Date/Time: 09/24/19 6403 I personally evaluated the patient and discussed the management with Dr. Singh. 33 yo LAF multip with h/o PIH seen in [facility] with increasing proteinuria. BPs here look good. Will OBS for labs, 24* urine for TP and BMX for FLM. I agree with the History, Examination, Assessment and Plan documented above.
[2019-09-24] MEDS: Betamet Acet/Betamet Na Ph 30 MG/5 ML VIAL IM SCH (12:54)
[2019-09-24 13:52] LABS: #Eosinphils 0.1 thou/uL (0.0-0.7); #Lymphocytes 2.1 thou/uL (1.20-3.40); #Monocytes 0.5 thou/uL (0.11-0.59); #Neutrophils 5.7 thou/uL (1.40-6.50); %Basophils 0.3 % (0.0-1.0); %Eosinophils 0.9 % (0.0-10.0); %Lymphocytes 24.9 % (21.0-51.0); %Monocytes 5.8 % (0.0-10.0); %Neutrophils 68.1 % (42.0-75.0); Hemoglobin 8.8 g/dL (12.0-16.0); Mean Corpuscular HGB CONC 32.5 g/dL (32.0-36.0); Mean Corpuscular Hemoglobin 24.4 pg (27.0-31.0); Mean Corpuscular Volume 75.2 fL (78.0-98.0); Mean Platelet Volume 9.6 fL (7.4-10.4); Platelet Count 254 thou/uL (130-400); RBC Distribution Width 16.5 % (11.5-14.5); Red Blood Cell (RBC) Count 3.59 mill/uL (4.20-5.40); White Blood Cell (WBC) Count 8.3 thou/uL (4.8-10.8)
[2019-09-24 14:12] LABS: ALT (SGPT) 8 U/L (8-55); AST (SGOT) 11 U/L (5-34); Albumin 3.3 g/dL (3.5-5.0); Alkaline Phosphatase 91 U/L (40-110); Anion Gap 14 mmol/L (10-20); BUN (Urea Nitrogen) Less than 4 mg/dL (7.0-18.7); Bilirubin, Total 0.3 mg/dL (0.2-1.2); Calc. Creatinine Clearance 226 mL/min (70-130); Calcium 8.4 mg/dL (7.8-10.44); Carbon Dioxide 20 mmol/L (22-29); Chloride 106 mmol/L (98-107); Estimated GFR-MDRD Greater than 90; Globulin 3.2 g/dL (2.4-3.5); Glucose 76 mg/dL (70-105); Potassium 3.6 mmol/L (3.5-5.1); Protein, Total 6.5 g/dL (6.0-8.3); Sodium 136 mmol/L (136-145)
[2019-09-24] MEDS ORDERED: Calcium Carbonate 500 MG ChewTAB PO PRN (23:29)
--- NOTE | 2019-09-25 07:41 | PDOC.OBAPN ---
FMR OB AP PN: Sub - Interval History Hospital Day: 2 Chief Complaint: Concern for PreE Indentification: 33 yo with a history of pre-eclampsia and A2GDM at 31.5 wks Interval History: No events overnight. No concerns this am Denies DOLL, vision change, abd pain FMR OB AP PN: Obj - Maternal Vital signs: BP: 117/66 HR: 86 RR: 15 Tmax: 98.9 Pox: 98% on RA - Urine output I&O: 09/24/19 09/25/19 09/26/19 06:59 06:59 06:59 Output Total 750 Balance -750 FMR OB AP PN: Exam - Physical Exam General: NAD, awake, alert and oriented HEENT: EOMI, MMM Neck: supple, FROM Heart: RRR, no edema General: no respiratory distress, good air movement Abdomen: soft, gravid, non-tender Musculoskeletal: pulses present, FROM in all four extremities Skin: no rash, no jaundice Psychiatric: intact recent and remote memory, good judgement and insight, normal mood and affect FMR OB AP PN: Data - Labs Lab results: Laboratory Results - last 24 hr 09/24/19 09/24/19 09/24/19 13:32 13:32 17:30 WBC 8.3 RBC 3.59 L Hgb 8.8 L Hct 27.0 L MCV 75.2 L MCH 24.4 L MCHC 32.5 RDW 16.5 H Plt Count 254 MPV 9.6 Neutrophils % 68.1 Lymphocytes % 24.9 Monocytes % 5.8 Eosinophils % 0.9 Basophils % 0.3 Neutrophils # 5.7 Lymphocytes # 2.1 Monocytes # 0.5 Eosinophils # 0.1 Basophils # 0.0 Sodium 136 Potassium 3.6 Chloride 106 Carbon Dioxide 20 L Anion Gap 14 BUN Less than 4 L Creatinine 0.51 L Estimated GFR (MDRD) Greater than 90 Glucose 76 POC Glucose 204 H Calcium 8.4 Total Bilirubin 0.3 AST 11 ALT 8 Alkaline Phosphatase 91 Serum Total Protein 6.5 Albumin 3.3 L Globulin 3.2 Albumin/Globulin Ratio 1.0 L 09/24/19 22:37 WBC RBC Hgb Hct MCV MCH MCHC RDW Plt Count MPV Neutrophils % Lymphocytes % Monocytes % Eosinophils % Basophils % Neutrophils # Lymphocytes # Monocytes # Eosinophils # Basophils # Sodium Potassium Chloride Carbon Dioxide Anion Gap BUN Creatinine Estimated GFR (MDRD) Glucose POC Glucose 133 H Calcium Total Bilirubin AST ALT Alkaline Phosphatase Serum Total Protein Albumin Globulin Albumin/Globulin Ratio FMR OB AP PN: A/P Discussion: Pre-Eclampsia Eval -Met criteria for pre-eclampsia based on home BP + in clinic prot/cr ratio -Since admission all BP WNL -Have started corticosteroids, last dose this afternoon -Pending 24hr urine protein -No severe feature sx this a.m. Plan: Will administer last dose of steroids later today and await 24hr urine collection. BP all WNL. Asx. No current concern for advancing pre-e or severe features. Likely DC later today with close follow up. Date/Time: 09/25/19 0740 This H&P was discussed with Dr. Walton and Dr. Pepper who agree with the above documentation and plan. Addendum - Attending - Attending Attestation Date/Time: 09/28/19 0918 I personally evaluated the patient and discussed the management with Dr. Tamayo. I agree with the History, Examination, Assessment and Plan documented above.
[2019-09-25] MEDS ORDERED: metFORMIN 500 MG TAB PO SCH (08:00)
[2019-09-25] MEDS ORDERED: Aspirin 81 mg Enteric Coated Tablet PO SCH (09:00)
[2019-09-25] MEDS ORDERED: Prenatal Vitamin 1 TAB PO SCH (09:00)
[2019-09-25 11:45] LABS: SARS-CoV-2 MS2 Positive; SARS-CoV-2 N Gene Negative; SARS-CoV-2 S Gene Negative; SARS-CoV-2 by NAA Not Detected (NotDetected); SARS-CoV-2 orf1ab Negative
[2019-09-25] MEDS: Betamet Acet/Betamet Na Ph 30 MG/5 ML VIAL IM SCH (13:25)
[2019-09-25 14:31] LABS: Urine Total Volume 1650 mL (600-1600)
[2019-09-25 14:52] LABS: Protein - 24 Hr 215 mg/24 hr (Less than 300); Protein, Urine 13 mg/dL (1-14)
[2019-09-25] MEDS ORDERED: Ferrous Sulfate 325 MG TAB PO SCH (17:00)
[2019-09-25 17:51] VITALS: BP 135/75; TEMP 98
--- NOTE | 2019-09-26 02:07 | DIS ---
DATE OF ADMISSION: 09/24/2019 DATE OF DISCHARGE: 09/25/2019 ADMITTING ATTENDING: Ramesh Walton MD. DISCHARGE ATTENDING: Thang Pepper MD. RESIDENT: Eleno Tamayo DO CONSULTATIONS: None. PROCEDURES: None. PRIMARY DIAGNOSIS: Evaluation for preeclampsia. SECONDARY DIAGNOSES: A2 gestational diabetes, history of preeclampsia with previous pregnancies. DISCHARGE MEDICATIONS: 1. Aspirin 81 mg daily. 2. vitamin 1 daily. 3. Metformin 500 mg q.a.m. 4. Ferrous sulfate 325 mg b.i.d. HISTORY OF PRESENT ILLNESS AND HOSPITAL COURSE: This is a 33-year-old, G3, P 1-1-0-2 with a history of preeclampsia in 2 prior pregnancies with current history of A2 gestational diabetes at 31 and 5 weeks on presentation, who was sent to [facility] for evaluation of preeclampsia. Patient is seen by clinic, was sent due to home blood pressures of 150s systolic over as high as 111 diastolic with intermittent complaints of scotomas, abdominal pain, and headaches. Patient had an outpatient urine protein creatinine ratio of 0.325. Patient was sent to the hospital for further workup of possible preeclampsia with severe features. Upon arrival, patient had no active symptoms, but did note experiencing some floaters in her vision and possible spots on the left side intermittently over the past couple of weeks. She also notes headaches intermittently throughout her that have not been worsening or changing. She also notes epigastric pain that is intermittent in nature and resolves on its own without treatment. Patient was subsequently admitted to the hospital for blood pressure monitoring, corticosteroids, and 24 hour urine protein collection. During her stay, her blood pressures remained within normal limits the entire time. Her highest blood pressure was noted to be 135/75. Patient remained completely asymptomatic throughout her stay. Her 24 hour urine protein was calculated to be 215 mg. She received 2 doses of betamethasone. She was incidentally found to be anemic to a level of 8.8 and was started on ferrous sulfate 325 b.i.d. Patient was instructed to follow up with care clinic routinely. Based on these results, the patient did not meet preeclampsia criteria during her hospital stay either by symptoms, blood pressures, for urine protein. DISCHARGE INSTRUCTIONS: Location: Home. Diet: Carb conscious. Activity: As tolerated and appropriate per restrictions based on gestational age. Followup: PCP within the next week. Job ID: [id number]
== END 2019-09-25 18:30 | disposition home health service (06) ==
LOC: L&D/OP 10:39 → INTOOBSV 12:35 → L&D-LIB 12:35 → 3SW 14:33
PROVIDERS: ADMIT Obstetrics & Gynecology; ATTEND Obstetrics & Gynecology
DX: O14.93 Unspecified pre-eclampsia, third trimester (principal); O24.415 Gestational diabetes mellitus in pregnancy, controlled by oral hypoglycemic drugs; Z3A.31 31 weeks gestation of pregnancy; Z79.82 Long term (current) use of aspirin; Z79.84 Long term (current) use of oral hypoglycemic drugs
CPT/HCPCS: 36415; 36416; 59025; 80053; 84156; 85025; 87635; 96372; 99285; G0378; J0702; U0003

== ENCOUNTER 2019-10-28 08:03 | Outpatient (CLI) | payer OTHER ==
[2019-10-28 17:20] LABS: SARS-CoV-2 MS2 Positive; SARS-CoV-2 N Gene Negative; SARS-CoV-2 S Gene Negative; SARS-CoV-2 by NAA Not Detected (NotDetected); SARS-CoV-2 orf1ab Negative
== END 2019-10-28 08:04 | disposition home or self-care (01) ==
LOC: LABSCS 08:03
PROVIDERS: ATTEND Family Medicine
DX: Z20.828 Contact with and (suspected) exposure to other viral communicable diseases (principal)
CPT/HCPCS: 87635; U0003

== ENCOUNTER 2019-10-31 18:00 | Inpatient (IN) | payer MEDICAID, OTHER, SELFPAY ==
[2019-10-31 19:39] VITALS: BMI 41.3
--- NOTE | 2019-10-31 20:30 | PDOC.FPROB ---
FMR OB H&P: HPI - History of Present Illness Chief Complaint: mIOL History of Present Illness: Patient is a 34 year old at 37.1wks by LMP/9.3wk sono who presents to L& D for medical IOL for DM and Pre-E. The patient says she feels well. + FM. She denies contractions, vaginal bleeding, vaginal discharge and LOF. She also denies headache, vision changes, chest pain, SOB, palpitations, abdominal pain and edema. She does not wish to have an epidural. Primary Care Physician: ROBERTO Huynh FMR OB H&P: Current - Care : 3 Para: 1 Gestational age: 37.2 Due date: 11/21/19 Dating Criteria: LMP/9.3wk sono Course/Complications: Obesity. Gestational DM. Iron deficiency anemia. PreE with severe features. Hx systolic ejection murmur. - OB Labs Blood type: O RH: positive Antibody Screen: negative HIV: negative RPR: negative HepBsAg: negative Rubella: immune Gonorrhea: negative Chlamydia: negative Pap Smear: negative 1 hour gtt: 90 3 hour GTT: 216 A1c: 5.6 FMR OB H&P: History - Past Medical History PMH: GERD, consipation - OB History OB History: gHTN with induction at 37 weeks leading to with questionable uterine prolapse/PPH requiring lap pad tamponade in [place] on 10/28/08. Severe PreE requiring induction at 36 weeks and Mag therapy leading to SV on 11/18/14. - SECURITY TECH History SECURITY TECH History: Menarche at 10 years old. LMP 02/14/19. Menstruation lasts 7 days. Last pap normal in 2014. - Surgical History Sx History: None - Social History Social History: Denies tobacco, alcohol and drug use. - Family History Family History: Mother - HTN FMR OB H&P: Medications - Current Home Medications: Medication Instructions Recorded Confirmed Type Aspirin [Adult Low Dose Aspirin EC] 81 mg PO DAILY 06/25/19 10/31/19 History Vitamin 1 tab PO DAILY tab 06/26/19 10/31/19 Rx metFORMIN [Glucophage] 500 mg PO QAM-WM 09/24/19 10/31/19 History Ferrous Sulfate [Feosol] 325 mg PO BID-WM #60 tab 09/25/19 10/31/19 Rx Allergies/Adverse Reactions: Allergies Allergy/AdvReac Type Severity Reaction Status Date / Time No Known Allergies Allergy Verified 10/31/19 19:24 FMR OB H&P: ROS - Review of Systems General: denies: fever/chills, fatigue ENT: denies: nasal congestion, rhinorrhea Cardiovascular: denies: chest pain, palpitation Respiratory: denies: congestion, shortness of breath Gastrointestinal: denies: abdominal pain, cramping, nausea, vomiting Genitourinary (Female): denies: vaginal discharge, vaginal pain, vaginal bleeding Musculoskeletal: denies: pain, stiffness Neurologic: denies: seizures, weakness FMR OB H&P: Vital Signs - Maternal Vital signs: Vital Signs - First Documented Temp Pulse Resp BP 98.7 F 90 18 120/70 10/31/19 19:22 10/31/19 19:22 10/31/19 19:22 10/31/19 19:22 - Heart Tones Baseline: 140 Variability: moderate Acceleration: present Deceleration: absent Category: category 1 [place] contractions every: 0 FMR OB H&P: Physical Exam - Physical Exam General: NAD, awake, alert and oriented HEENT: normocephalic and atraumatic Neck: supple, trachea midline Chest: non-tender to palpation, no lesions Heart: RRR, normal S1/S2 General: CTAB, no respiratory distress Abdomen: gravid, non-tender, bowel sound present Musculoskeletal: normal gait and station, FROM in all four extremities Neurological: cranial nerves II through XII intact Skin: no rash, no jaundice Lymphatic: no purpura, no petechia Psychiatric: normal mood and affect - Pelvic Exam Deviation from normal: 2.5/thick/high Membranes: intact Presentation: cephalic FMR OB H&P: A/P Disposition: Single IUP Currently 2.5/thick/high. Category 1 strip. GBS negative. Does not desire epidural. -Administer cytotec -Cervical checks Q4H Gestational DM -On metformin 500mg daily -Glucose checks Q4H PreE -Monitor of symptom development -Monitor BP Anemia Hgb 8.5. -On iron and multivitamin Discussion: Date/Time: 10/31/192029 This H&P was discussed with [Enoch] and [Jorgito] who agree with the above documentation and plan. Addendum - Attending - Attending Attestation Date/Time: 11/01/19 2366 I personally evaluated the patient and discussed the management with Dr. Stokes last night. I agree with the History, Examination, Assessment and Plan documented above with any addition or exceptions noted below.
[2019-10-31] MEDS ORDERED: Acetaminophen 500 MG TAB PO PRN (20:32)
[2019-10-31] MEDS ORDERED: Diphenoxylate HCl/Atropine Tablet PO PRN ×2 (20:32)
[2019-10-31] MEDS ORDERED: Methylergonovine 0.2 MG/ML VIAL IM PRN (20:32)
[2019-10-31] MEDS ORDERED: Misoprostol 200 MCG TAB PR PRN (20:32)
[2019-10-31] MEDS ORDERED: Lidocaine 1% (PF) 30 ML VIAL SC PRN (20:32)
[2019-10-31] MEDS ORDERED: Butorphanol Tartrate 1 MG/ML VIAL SLOW IVP PRN (20:32)
[2019-10-31] MEDS ORDERED: hydrALAZINE 20 MG/ML VIAL SLOW IVP PRN (20:32)
[2019-10-31] MEDS ORDERED: Carboprost 250 MCG/ML AMP IM PRN (20:32)
[2019-10-31] MEDS ORDERED: Ibuprofen 800 MG TAB PO PRN (20:32)
[2019-10-31] MEDS ORDERED: Ondansetron PF 4 MG/2 ML Vial IVP PRN (20:32)
[2019-10-31] MEDS ORDERED: Promethazine HCl 25 MG/ML VIAL IM PRN (20:32)
[2019-10-31 21:27] LABS: Hemoglobin 8.1 g/dL (12.0-16.0); Mean Corpuscular HGB CONC 31.1 g/dL (32.0-36.0); Mean Corpuscular Hemoglobin 22.5 pg (27.0-31.0); Mean Corpuscular Volume 72.3 fL (78.0-98.0); Mean Platelet Volume 10.9 fL (7.4-10.4); Platelet Count 249 thou/uL (130-400); RBC Distribution Width 18.3 % (11.5-14.5); Red Blood Cell (RBC) Count 3.62 mill/uL (4.20-5.40); White Blood Cell (WBC) Count 7.4 thou/uL (4.8-10.8)
[2019-10-31] MEDS: Misoprostol 100 MCG TAB VAG SCH (21:30)
[2019-10-31 22:07] LABS: Syphilis Antibody Nonreactive (Nonreactive); Syphilis Antibody Index 0.03 S/CO (<1.00 Non-Reactive)
[2019-10-31 22:58] LABS: HBSAg Index 0.15 S/CO (0-0.99); Hep B Surf Ag Non-Reactive S/CO (NonReactive)
--- NOTE | 2019-11-01 00:10 | PDOC.LDPN ---
Labor & Delivery Progress Note - Subjective Subjective: comfortable - Objective Vital signs reviewed and normal: yes General: NAD, resting Uterine fundus: non tender Dilation: 3 Effacement: 50% Station: -3 FHT: category 1 [place] contractions every: 3-5 min Resuscitative measures: maternal IV fluids, maternal position change Plan: continue plan of care -: Single IUP Currently /-3 Category 1 strip. GBS negative. Does not desire epidural. -Cytotec x 2 administered -Cervical checks Q4H -Start pit Gestational DM -On metformin 500mg daily -Glucose checks Q4H PreE -Monitor of symptom development -Monitor BP Anemia Hgb 8.5. -On iron and multivitamin
[2019-11-01] MEDS: Misoprostol 100 MCG TAB VAG SCH ×2 (00:43→04:26)
--- NOTE | 2019-11-01 03:56 | PDOC.LDPN ---
Labor & Delivery Progress Note - Subjective Subjective: comfortable - Objective Vital signs reviewed and normal: yes General: NAD, resting Uterine fundus: non tender Dilation: 4 Effacement: 50% Station: -3 FHT: category 1 [place] contractions every: 3-4 min Resuscitative measures: maternal IV fluids, maternal position change Plan: continue plan of care, labor augmentation, pitocin for augmentation -: Single IUP Currently /-3. Category 1 strip. GBS negative. Does not desire epidural. -Administered cytotec x 2 -Cervical checks Q4H -Started pit at 0400 Gestational DM -On metformin 500mg daily -Glucose checks Q4H PreE -Monitor of symptom development -Monitor BP Anemia Hgb 8.5. -On iron and multivitamin
[2019-11-01] MEDS ORDERED: NS w/ Oxytocin 10 units 500 ML IV SCH (04:00)
[2019-11-01] MEDS: Lactated Ringer's 1,000 ML IV SCH (04:25)
--- NOTE | 2019-11-01 08:55 | PDOC.LDPN ---
Labor & Delivery Progress Note - Subjective Subjective: comfortable, vaginal pressure - Objective Vital signs reviewed and normal: yes General: NAD, resting Uterine fundus: non tender Dilation: 5 Effacement: 50% Station: -3 FHT: category 1 (140/mod/accels) [place] contractions every: q3-5 Plan: continue plan of care, labor augmentation -: #sIUP, labor for mIOL induction -5/60/-3 @0900 -FHT: Cat I -CTX: q2-4 min -No epidural desired -Pit @6 #preE, no severe features -BPs <160/<110 -No sxs #pregest DM vs gest DM -A1c 5.9% in 1st trimester -Failed 1hr/3hr GTT -Accuchecks 90s, at goal -Continue q4 hours # Hx of PPH in previous -Will have uterotonics available at bedside #Iron deficiency anemia -Stable Continue with labor augmentation. Titrate up pitocin.
--- NOTE | 2019-11-01 12:59 | PDOC.LDPN ---
Labor & Delivery Progress Note - Subjective Subjective: comfortable, painful contractions - Objective Vital signs reviewed and normal: yes General: NAD, resting Uterine fundus: non tender SVE: /-2 Dilation: 5 Effacement: 50% Station: -2 FHT: category 1, variability present [place] contractions every: 3 min Plan: continue plan of care, pitocin for augmentation -: #sIUP, labor for mIOL induction -/-2 @1100 -FHT: Cat I -CTX: q3 min -No epidural desired -Pit @12 #preE, no severe features -BPs <160/<110 -No sxs #pregest DM vs gest DM -A1c 5.9% in 1st trimester -Failed 1hr/3hr GTT -Accuchecks 80-90s, at goal -Continue q4 hours # Hx of PPH in previous -Will have uterotonics available at bedside #Iron deficiency anemia -Stable Continue with labor augmentation. Titrate up pitocin. Consider AROM. Addendum - Attending - Attending Attestation Date/Time: 11/01/19 0153 I personally evaluated the patient and discussed the management with Dr. Singh I agree with the History, Examination, Assessment and Plan documented above with any addition or exceptions noted below. I examined the cervix and find that while the head is the presenting part , it is not engaged into the pelvis well enough to AROM. presentation was confirmed by cervical exam and Theron maneuvers.
--- NOTE | 2019-11-01 14:01 | PDOC.LDPN ---
Labor & Delivery Progress Note - Subjective Subjective: comfortable - Objective Vital signs reviewed and normal: yes General: NAD Uterine fundus: non tender SVE: /-3 Dilation: 5 Effacement: 50% Station: -3 FHT: category 1, variability present [place] contractions every: 3 min Plan: continue plan of care, pitocin for augmentation -: #sIUP, labor for mIOL induction -/-3 @1350 -FHT: Cat I -CTX: q3 min -No epidural desired -Pit @12 -Dr. Bull performed the check and determined baby was too high to safely rupture. #preE, no severe features -BPs <160/<110 -No sxs #pregest DM vs gest DM -A1c 5.9% in 1st trimester -Failed 1hr/3hr GTT -Accuchecks 80-90s, at goal -Continue q4 hours # Hx of PPH in previous -Will have uterotonics available at bedside #Iron deficiency anemia -Stable Continue with labor augmentation. Titrate up pitocin. Station of baby is not appropriate for AROM at this time.
--- NOTE | 2019-11-01 16:50 | PDOC.LDPN ---
Labor & Delivery Progress Note - Subjective Subjective: comfortable, painful contractions - Objective Vital signs reviewed and normal: yes General: NAD, breathing through contractions Uterine fundus: non tender SVE: / Dilation: 8 Effacement: 75% Station: -1 FHT: category 1, variability present [place] contractions every: 2-4 min Plan: continue plan of care, pitocin for augmentation -: #sIUP, labor for mIOL induction - @ 1627 -FHT: Cat I -CTX: q2-4 min -No epidural desired -Pit @12 -Membranes intact #preE, no severe features -BPs <160/<110 -No sxs #pregest DM vs gest DM -A1c 5.9% in 1st trimester -Failed 1hr/3hr GTT -Accuchecks 80-90s, at goal -Continue q4 hours # Hx of PPH in previous -Will have uterotonics available at bedside #Iron deficiency anemia -Stable Continue with labor augmentation. Titrate pitocin.
--- NOTE | 2019-11-01 17:40 | PDOC.LDPN ---
Labor & Delivery Progress Note - Subjective Subjective: painful contractions - Objective Vital signs reviewed and normal: yes General: breathing through contractions SVE: 80/0 Dilation: 6 Effacement: 75% Station: 0 FHT: category 1, variability present [place] [employer] contractions every: 2 min AROM: clear fluid Plan: continue plan of care, pitocin for augmentation -: #sIUP, labor for mIOL induction -/0 @ 1730 -FHT: Cat I -CTX: q2-4 min -No epidural desired -Pit @14 -AROM, scant clear fluid @ 1730 #preE, no severe features -BPs <160/<110 -No sxs #pregest DM vs gest DM -A1c 5.9% in 1st trimester -Failed 1hr/3hr GTT -Accuchecks 80-90s, at goal -Continue q4 hours # Hx of PPH in previous -Will have uterotonics available at bedside #Iron deficiency anemia -Stable Continue with labor augmentation. Titrate pitocin.
[2019-11-01] MEDS: NS / Oxytocin 40 units/1000ml 1,000 ML IV PRN ×2 (18:10→19:30)
--- NOTE | 2019-11-01 18:24 | PDOC.OPDEL ---
OB Operative/Delivery Note - Additional Findings/Plan Compilations/Other Findings: Delivering Physician: Dr. Stokes/Dr. Kendall Attending Procedure: Dr. Nagel Spontaneous Vaginal Delivery Anesthesia: None EBL: 200 ml Pre-op Diagnosis: 1. Term intrauterine in labor 2. Hx of gestational DM 3. Hx Pre-E 4. Iron deficiency anemia 5. Hx systolic ejection murmur Post-op Diagnosis: 1. Term intrauterine , delivered 2. same as above Indications: A 34 y/o female presents to L&D for induction due to gestation DM and Pre-E Delivery Note: This is 34 yo F @ 37.1 wks who delivered a viable M at 1757 on 11/01/2019. Following an uneventful antepartum course, a vigorous M was delivered with nursing staff present. The head was held down and mouth and nares were bulb suctioned. Cord clamped and cut and cord blood collected. Placenta delivered intact with a 3 vessel cord noted. Fundal massage was performed and the fundus was firm. The cervix and vagina were inspected and found to be free of lacerations and abrasions. went to nursery in good condition for routine care. Apgars were 8/9 at 1 & 5 minutes, respectively. Patient tolerated delivery well and went to after routine recovery/care. Addendum - Attending - Attending Attestation Date/Time: 11/01/19 1900 I was present, assisted and supervised the of this 34 yo @37.1 weeks induced for GDM and Pre-E delivered a viable male in a precipitous nurse delivery. Apgars 8/9. Placenta delivered spontaneously and intact. 3V cord. No epis or lac. EBL 200 mL. Residents: Kike/Enoch.
[2019-11-01] MEDS ORDERED: Milk Of Magnesia 30 ML UDCUP PO PRN (19:35)
[2019-11-01] MEDS ORDERED: Lanolin Ointment 7 GM TUBE TOP PRN (19:35)
[2019-11-01] MEDS ORDERED: Ondansetron PF 4 MG/2 ML Vial IVP PRN (19:35)
[2019-11-01] MEDS ORDERED: Benzocaine-Menthol 82.5 ML CAN TOP PRN (19:35)
[2019-11-01] MEDS ORDERED: Misoprostol 200 MCG TAB VAG PRN (19:35)
[2019-11-01] MEDS ORDERED: Promethazine HCl 25 MG/ML VIAL IM PRN (19:35)
[2019-11-01] MEDS ORDERED: diphenhydrAMINE 25 MG CAP PO PRN (19:35)
[2019-11-01] MEDS ORDERED: Preparation H Ointment 28 GM TUBE PR PRN (19:35)
[2019-11-01] MEDS ORDERED: hydrALAZINE 20 MG/ML VIAL SLOW IVP PRN (19:35)
[2019-11-01] MEDS ORDERED: Bisacodyl 10 MG SUPP PR PRN (19:35)
[2019-11-01] MEDS ORDERED: NS / Oxytocin 40 units/1000ml 1,000 ML IV SCH (19:45)
[2019-11-01] MEDS: Docusate Calcium (SURFAK) 240 MG CAP PO SCH (21:44)
[2019-11-02] MEDS ORDERED: Ibuprofen 800 MG TAB PO SCH (02:00)
--- NOTE | 2019-11-02 07:30 | PDOC.PP ---
Post Progress Note Post Day #: 1 Subjective: Pt resting comfortably in bed this AM. Endorses mild vaginal bleeding. Occassional cramps, but overall is doing well. Tolerating PO and ambulating without difficulty. BPs stable, ACCU checks WNL. Breast feeding without complaints. Denies DOLL, vision changes, abdominal pain, edema, SOB, CP. PO intake tolerated: yes Flatus: yes Ambulation: yes Vital Signs (12 hours) Temp Pulse Resp BP Pulse Ox 11/02/19 05:19 97.9 F 77 14 97/51 L 98 11/01/19 23:51 98.4 F 89 16 103/54 L 11/01/19 20:55 98.4 F 91 14 121/57 L 98 Weight Weight 92.986 kg - Physical Examination General: NAD Cardiovascular: no m/r/g, RRR Respiratory: clear to auscultation bilaterally, non-labored breathing Abdominal: + bowel sounds, appropriately TTP Neurological: no gross focal deficits Psychiatric: A&Ox3, normal affect Result Diagrams: 10/31/19 21:16 Additional Labs: Post Labs Blood Type O POSITIVE 10/31/19 21:16 Hep Bs Antigen Non-Reactive S/CO (NonReactive) 10/31/19 21:16 - Assessment/Plan Pt is a who is PP Day 1 Day 1 -s/p with no complications -doing well, no complaints -plans to follow up with PNC -unsure of what she wants for PP contraception at this time -continue routine care Gestational DM -On metformin 500mg daily -Glucose checks Q4H -will need to follow up at 6 weeks PreE -Monitor of symptom development -Monitor BP Anemia Hgb 8.5. -On iron and multivitamin Addendum - Attending - Attending Attestation Date/Time: 11/02/19 1053 I personally evaluated the patient and discussed the management with Dr. Otero. I agree with the History, Examination, Assessment and Plan documented above with any addition or exceptions noted below. Patient diagnosed pre-eclampsia w/o severe features. BP WNL. Monitor overnight. D/C tomorrow.
[2019-11-02] MEDS: Ibuprofen 800 MG TAB PO SCH ×3 (08:21→21:39)
[2019-11-02] MEDS: Ferrous Sulfate 325 MG TAB PO SCH ×2 (08:23→17:24)
[2019-11-02] MEDS: Prenatal Vitamin 1 TAB PO SCH (08:23)
[2019-11-02] MEDS: Docusate Calcium (SURFAK) 240 MG CAP PO SCH ×2 (08:23→21:39)
[2019-11-02] MEDS ORDERED: Adacel (T-DAP) 0.5 ML SYRINGE IM ONE (09:00)
[2019-11-02] MEDS: Misoprostol 100 MCG TAB VAG SCH ×2 (22:16→22:17)
[2019-11-02] MEDS: Lactated Ringer's 1,000 ML IV SCH (22:16)
[2019-11-03] MEDS: Ibuprofen 800 MG TAB PO SCH ×2 (05:01→14:04)
--- NOTE | 2019-11-03 06:34 | PDOC.PP ---
Post Progress Note Post Day #: 2 Subjective: Patient resting comfortably in bed this morning. Denies any pain. Endorses minimal vaginal bleeding. Ambulating and tolerating PO without difficulty. Wants to go home. PO intake tolerated: yes Flatus: yes Ambulation: yes Vital Signs (12 hours) Temp Pulse Resp BP Pulse Ox 11/02/19 20:05 98.0 F 87 18 118/64 98 Weight Weight 92.986 kg - Physical Examination General: NAD Cardiovascular: no m/r/g, RRR Respiratory: clear to auscultation bilaterally, non-labored breathing Abdominal: + bowel sounds, appropriately TTP Neurological: no gross focal deficits Psychiatric: A&Ox3, normal affect Result Diagrams: 10/31/19 21:16 Additional Labs: Post Labs Blood Type O POSITIVE 10/31/19 21:16 Hep Bs Antigen Non-Reactive S/CO (NonReactive) 10/31/19 21:16 - Assessment/Plan Pt is a who is PP Day 2 Day 2 -s/p with no complications -doing well, no complaints -plans to follow up with PNC -unsure of what she wants for PP contraception at this time, but wants to discuss options further at PNC -continue routine care Gestational DM -On metformin 500mg daily, will resume on discharge as patient's POC glucose were elevated on admission -ACHS glucose checks -will need 2hr GTT follow up at 6 weeks PreE w/o severe features -BPs WNL -Monitor for symptom development Anemia Hgb 8.5. -On iron and multivitamin Follow up in 1 week at PNC. Case management consulted as patient does not have a ride home. Addendum - Attending - Attending Attestation Date/Time: 11/03/19 6530 I personally evaluated the patient and discussed the management with Dr. Otero. I agree with the History, Examination, Assessment and Plan documented above with any addition or exceptions noted below. Restart metformin. f/u PNC 1-2 weeks. D/C to B&B.
[2019-11-03 07:51] VITALS: BP 110/59; TEMP 98.3
[2019-11-03] MEDS: Prenatal Vitamin 1 TAB PO SCH (10:00)
[2019-11-03] MEDS: Docusate Calcium (SURFAK) 240 MG CAP PO SCH (10:00)
[2019-11-03] MEDS: Ferrous Sulfate 325 MG TAB PO SCH (10:01)
== END 2019-11-03 18:00 | disposition home or self-care (01) | DRG 807 ==
LOC: L&D 18:23 → 3SW 11-01 21:25
PROVIDERS: ADMIT Family Medicine; ATTEND Family Medicine
PROC: 10E0XZZ Delivery of Products of Conception, External Approach (ICD-10-PCS; principal; 2019-11-01)
DX: O24.429 Gestational diabetes mellitus in childbirth, unspecified control (principal); Z37.0 Single live birth; Z3A.37 37 weeks gestation of pregnancy; O99.02 Anemia complicating childbirth; O14.94 Unspecified pre-eclampsia, complicating childbirth; D50.0 Iron deficiency anemia secondary to blood loss (chronic)
CPT/HCPCS: 36415; 36416; 85027; 86780; 86850; 86900; 86901; 87340; J2590

== ENCOUNTER 2020-07-25 18:40 | Emergency (ER) | payer MEDICAID, SELFPAY ==
[2020-07-25 19:12] LABS: #Basophils 0.1 thou/uL (0.0-0.2); #Eosinphils 0.2 thou/uL (0.0-0.7); #Lymphocytes 2.4 thou/uL (1.20-3.40); #Monocytes 0.6 thou/uL (0.11-0.59); #Neutrophils 6.4 thou/uL (1.40-6.50); %Basophils 0.7 % (0.0-1.0); %Eosinophils 1.7 % (0.0-10.0); %Lymphocytes 24.6 % (21.0-51.0); %Monocytes 5.9 % (0.0-10.0); Hemoglobin 11.5 g/dL (12.0-16.0); Mean Corpuscular HGB CONC 32.2 g/dL (32.0-36.0); Mean Corpuscular Hemoglobin 24.4 pg (27.0-31.0); Mean Platelet Volume 10.3 fL (7.4-10.4); Platelet Count 277 thou/uL (130-400); RBC Distribution Width 16.6 % (11.5-14.5); Red Blood Cell (RBC) Count 4.72 mill/uL (4.20-5.40); White Blood Cell (WBC) Count 9.6 thou/uL (4.8-10.8)
[2020-07-25 19:28] LABS: ALT (SGPT) 23 U/L (8-55); AST (SGOT) 16 U/L (5-34); Albumin 4.1 g/dL (3.5-5.0); Alkaline Phosphatase 77 U/L (40-110); Anion Gap 12 mmol/L (10-20); BUN (Urea Nitrogen) 9 mg/dL (7.0-18.7); Bilirubin, Total 0.2 mg/dL (0.2-1.2); Calc. Creatinine Clearance 0 mL/min (70-130); Calcium 9.1 mg/dL (7.8-10.44); Carbon Dioxide 23 mmol/L (22-29); Chloride 107 mmol/L (98-107); Globulin 3.7 g/dL (2.4-3.5); Glucose 109 mg/dL (70-105); Lipase 37 U/L (8-78); Potassium 3.7 mmol/L (3.5-5.1); Protein, Total 7.8 g/dL (6.0-8.3); Sodium 138 mmol/L (136-145)
[2020-07-25 21:40] LABS: Troponin I Less than 0.010 ng/mL (< 0.028)
== END 2020-07-25 22:20 | disposition home or self-care (01) ==
LOC: ERS 18:40
DX: R07.9 Chest pain, unspecified (principal)
CPT/HCPCS: 36415; 71045; 80053; 83690; 84484; 85025; 93005